=== PATIENT | male | born 1970 | race Hispanic/Latino ===

== ENCOUNTER 2021-06-17 10:31 | Outpatient (CLI) | payer BC ==
[2021-06-17 12:52] LABS: #Eosinphils 0.1 10x3/uL (0.0-0.5); #Monocytes 0.7 10x3/uL (0.0-1.1); #Neutrophils 5.6 10x3/uL (1.5-8.4); %Basophils 0.5 % (0.0-2.0); %Eosinophils 1.3 % (0.0-6.0); %Lymphocytes 19.4 % (18.0-47.0); %Monocytes 8.4 % (0.0-10.0); %Neutrophils 69.5 % (40.0-75.0); Mean Corpuscular HGB CONC 32.4 g/dL (32.0-36.0); Mean Corpuscular Hemoglobin 31.5 pg (27.0-33.0); Mean Corpuscular Volume 97.1 fl (81.2-95.1); Mean Platelet Volume 9.4 fl (7.4-10.4); Platelet Count 184 10x3/uL (150-450); RBC Distribution Width 16.1 % (11.5-14.5); Red Blood Cell (RBC) Count 3.49 10x6/uL (4.32-5.72)
[2021-06-17 13:39] LABS: Anion Gap 16 mmol/L (10-20); BUN (Urea Nitrogen) 32 mg/dL (8.4-25.7); Calc. Creatinine Clearance 0 mL/min (70-130); Calcium 9.3 mg/dL (7.8-10.44); Carbon Dioxide 28 mmol/L (22-29); Chloride 100 mmol/L (98-107); Glucose 112 mg/dL (70-105); Potassium 4.3 mmol/L (3.5-5.1); Sodium 140 mmol/L (136-145)
[2021-06-17 21:15] LABS: SARS-CoV-2 PCR by NAA Not Detected (NotDetected)
== END 2021-06-17 10:32 | disposition home or self-care (01) ==
LOC: LABBT 10:31
PROVIDERS: ATTEND Specialist
DX: Z01.818 Encounter for other preprocedural examination (principal); K42.9 Umbilical hernia without obstruction or gangrene; Z20.822 Contact with and (suspected) exposure to COVID-19
CPT/HCPCS: 80048; 85025; 93005; 93010; U0003; U0005

== ENCOUNTER 2021-06-20 06:41 | Observation (INO) | payer BC ==
[2021-06-20] MEDS ORDERED: Acetaminophen 500 MG TAB ONE (07:03)
[2021-06-20] MEDS ORDERED: ceFAZolin 2 GM/DEX 5% 100 ML BAG ONE (07:03)
[2021-06-20] MEDS ORDERED: Midazolam HCl 2 mg/2 ml Vial ONE (09:07)
[2021-06-20] MEDS ORDERED: Fentanyl 100 MCG/2 ML VIAL ONE ×4 (09:07→12:57)
[2021-06-20] MEDS ORDERED: Bupivacaine 0.25% HCL 30 ML VIAL ONE (09:09)
[2021-06-20] MEDS ORDERED: Lidocaine 1% w/Epinephrine 1:100K 20 ML VIAL ONE (09:09)
[2021-06-20] MEDS ORDERED: SUGAMMADEX SODIUM 200 MG/2 ML VIAL ONE ×2 (09:19→10:11)
[2021-06-20] MEDS ORDERED: Ondansetron PF 4 MG/2 ML Vial ONE (09:28)
[2021-06-20] MEDS ORDERED: PROPOFOL 200 MG/20 ML VIAL ONE (09:28)
[2021-06-20] MEDS ORDERED: Lidocaine 1% PF 5 ML VIAL ONE (09:28)
[2021-06-20] MEDS ORDERED: Vecuronium 10 MG VIAL ONE (09:28)
[2021-06-20] MEDS ORDERED: Rocuronium Bromide 10 MG/ML (10ML VIAL) ONE (09:28)
[2021-06-20] MEDS ORDERED: ePHEDrine 50 MG/ML VIAL ONE (09:28)
[2021-06-20] MEDS ORDERED: Sodium Chloride For Inhalation 0.9% 3 ML NEB ONE (10:30)
[2021-06-20] MEDS ORDERED: Racepinephrine 2.25% 0.5 ML NEB ONE (10:30)
[2021-06-20] MEDS ORDERED: HYDROcodone/Acetaminophen 5/325 mg Tablet ONE ×2 (11:44→12:15)
[2021-06-20] MEDS ORDERED: Ondansetron ODT 4 MG TAB PO PRN (14:49)
[2021-06-20] MEDS ORDERED: Dextrose 5% in Water 1,000 ML IV PRN (14:49)
[2021-06-20] MEDS ORDERED: Dextrose 50% Abboject 50 ML SYRINGE SLOW IVP PRN (14:49)
[2021-06-20] MEDS ORDERED: Ondansetron PF 4 MG/2 ML Vial IVP PRN (14:49)
[2021-06-20] MEDS ORDERED: hydrALAZINE 20 MG/ML VIAL SLOW IVP PRN (14:49)
[2021-06-20] MEDS ORDERED: Acetaminophen 500 MG TAB PO PRN (14:52)
[2021-06-20] MEDS ORDERED: traMADol HCl 50 MG TAB PO PRN ×3 (14:52→15:45)
[2021-06-20] MEDS ORDERED: HYDROcodone/Acetaminophen 7.5/325 mg Tablet PO PRN (14:53)
[2021-06-20] MEDS ORDERED: Terazosin HCl 5 MG CAP PO SCH (15:00)
[2021-06-20] MEDS ORDERED: Acetaminophen 500 MG TAB PO SCH (15:00)
[2021-06-20] MEDS ORDERED: Morphine 4 MG/ML VIAL SLOW IVP PRN (15:22)
[2021-06-20] MEDS ORDERED: hydrALAZINE 25 MG TAB PO SCH (15:30)
[2021-06-20] MEDS: Sevelamer Carbonate 800 MG TAB PO SCH (18:06)
[2021-06-20] MEDS: Morphine 4 MG/ML VIAL SLOW IVP PRN ×2 (18:45→23:14)
[2021-06-20] MEDS: Carvedilol 25 MG TAB PO SCH (19:28)
[2021-06-20] MEDS: hydrALAZINE 25 MG TAB PO SCH (19:29)
[2021-06-20] MEDS: Isosorbide Dinitrate 20 MG TAB PO SCH (19:29)
[2021-06-20 19:52] VITALS: BMI 29.1
[2021-06-20] MEDS ORDERED: NIFEdipine XL 90 MG TAB PO SCH (21:00)
[2021-06-20] MEDS ORDERED: Famotidine 20 MG TAB PO SCH (21:00)
[2021-06-20] MEDS ORDERED: ALPRAZolam 0.25 MG TAB PO SCH (21:00)
[2021-06-21 04:58] LABS: #Eosinphils 0.1 thou/uL (0.0-0.7); #Lymphocytes 1.9 thou/uL (1.20-3.40); #Monocytes 0.7 thou/uL (0.11-0.59); #Neutrophils 5.5 thou/uL (1.40-6.50); %Basophils 0.6 % (0.0-1.0); %Eosinophils 1.3 % (0.0-10.0); %Lymphocytes 23.3 % (21.0-51.0); %Monocytes 8.2 % (0.0-10.0); %Neutrophils 66.6 % (42.0-75.0); Hemoglobin 11.6 g/dL (14.0-18.0); Mean Corpuscular HGB CONC 32.6 g/dL (32.0-36.0); Mean Platelet Volume 6.7 fL (7.4-10.4); Platelet Count 154 thou/uL (130-400); RBC Distribution Width 16.3 % (11.5-14.5); Red Blood Cell (RBC) Count 3.51 mill/uL (4.70-6.10); White Blood Cell (WBC) Count 8.2 thou/uL (4.8-10.8)
[2021-06-21 05:19] LABS: Anion Gap 11 mmol/L (10-20); BUN (Urea Nitrogen) 22 mg/dL (8.4-25.7); Calc. Creatinine Clearance 14 mL/min (70-130); Calcium 9.1 mg/dL (7.8-10.44); Carbon Dioxide 32 mmol/L (22-29); Chloride 100 mmol/L (98-107); Glucose 93 mg/dL (70-105); Potassium 4.5 mmol/L (3.5-5.1); Sodium 138 mmol/L (136-145)
[2021-06-21] MEDS: Sevelamer Carbonate 800 MG TAB PO SCH ×2 (08:00→11:14)
[2021-06-21] MEDS: Carvedilol 25 MG TAB PO SCH (08:00)
[2021-06-21] MEDS: Isosorbide Dinitrate 20 MG TAB PO SCH (08:00)
[2021-06-21] MEDS: hydrALAZINE 25 MG TAB PO SCH (08:43)
[2021-06-21 11:49] VITALS: BP 178/87; TEMP 97.6
== END 2021-06-21 12:18 | disposition home or self-care (01) ==
LOC: SDC 06:41 → SURG A 13:42
PROVIDERS: ADMIT Specialist; ATTEND Specialist
PROC: 0WUF4JZ Supplement Abdominal Wall with Synthetic Substitute, Percutaneous Endoscopic Approach (ICD-10-PCS; principal; 2021-06-20)
DX: K42.9 Umbilical hernia without obstruction or gangrene (principal); I12.0 Hypertensive chronic kidney disease with stage 5 chronic kidney disease or end stage renal disease; N18.6 End stage renal disease; E87.5 Hyperkalemia; G47.00 Insomnia, unspecified; E78.5 Hyperlipidemia, unspecified; Z86.16 Personal history of COVID-19; Z87.891 Personal history of nicotine dependence; Z79.899 Other long term (current) drug therapy; Z88.1 Allergy status to other antibiotic agents; Z95.0 Presence of cardiac pacemaker; Z99.2 Dependence on renal dialysis
CPT/HCPCS: 36415; 80048; 85025; 90935; 96374; 96375; 96376; C1781; G0257; G0378; J0360; J2250; J2270; J2405; J2704; J3010; J3490; S0020

== ENCOUNTER 2021-10-21 13:23 | Outpatient (CLI) | payer BC ==
[2021-10-21 14:52] LABS: Hemoglobin 11.1 g/dL (13.5-17.5); Mean Corpuscular HGB CONC 32.2 g/dL (32.0-36.0); Mean Corpuscular Hemoglobin 31.5 pg (27.0-33.0); Mean Platelet Volume 9.4 fl (7.4-10.4); Platelet Count 174 10x3/uL (150-450); RBC Distribution Width 17.4 % (11.5-14.5); Red Blood Cell (RBC) Count 3.52 10x6/uL (4.32-5.72); White Blood Cell (WBC) Count 6.2 10x3/uL (3.5-10.5)
[2021-10-21 15:20] LABS: PTT 28.7 sec (22.0-33.0); Prothrombin Time 10.9 sec (9.5-12.1)
[2021-10-21 15:28] LABS: Anion Gap 17 mmol/L (10-20); BUN (Urea Nitrogen) 32 mg/dL (8.4-25.7); Calc. Creatinine Clearance 0 mL/min (70-130); Calcium 9.8 mg/dL (7.8-10.44); Carbon Dioxide 28 mmol/L (22-29); Chloride 99 mmol/L (98-107); Glucose 113 mg/dL (70-105); Potassium 4.8 mmol/L (3.5-5.1); Sodium 139 mmol/L (136-145)
[2021-10-21 17:18] LABS: Bilirubin Neg (Negative); Blood, Urine Negative (Negative); Clarity Clear (Clear); Glucose, Urine (Dipstick) 100 mg/dL (Negative); Ketone, Urine Negative (Negative); Leukocyte Negative (Negative); Nitrite Negative (Negative); Protein, Urine (Dipstick) 100 mg/dl (Neg-Trace); Urobilinogen Normal mg/dL (Less than 2)
[2021-10-21 17:44] LABS: Bacteria/HPF None Seen HPF (None Seen); RBC/HPF None Seen HPF (0-3); Squamous Epithelial None Seen HPF (0-3); WBC/HPF None Seen HPF (0-3)
[2021-10-22 00:24] LABS: SARS-CoV-2 PCR by NAA Not Detected (NotDetected)
== END 2021-10-21 13:24 | disposition home or self-care (01) ==
LOC: LABBT 13:23
PROVIDERS: ATTEND Urology
DX: Z01.818 Encounter for other preprocedural examination (principal); I50.32 Chronic diastolic (congestive) heart failure; N18.6 End stage renal disease; R30.0 Dysuria; R39.15 Urgency of urination; I42.0 Dilated cardiomyopathy; N32.0 Bladder-neck obstruction; Z99.2 Dependence on renal dialysis; Z20.822 Contact with and (suspected) exposure to COVID-19
CPT/HCPCS: 80048; 81001; 85027; 85610; 85730; 87086; 93005; 93010; U0003; U0005

== ENCOUNTER 2021-10-24 06:09 | Day surgery (SDC) | payer BC ==
[2021-10-21 12:12] VITALS: BMI 28.7
[2021-10-24] MEDS ORDERED: Phenylephrine 10 MG/ML VIAL ONE (08:21)
[2021-10-24] MEDS ORDERED: Fentanyl 100 MCG/2 ML VIAL ONE (08:21)
[2021-10-24] MEDS ORDERED: B & O ONE (08:21)
[2021-10-24] MEDS ORDERED: Levofloxacin 500 mg/D5W 100 ml Premix Bag ONE (08:24)
[2021-10-24] MEDS ORDERED: Ondansetron PF 4 MG/2 ML Vial ONE (08:30)
[2021-10-24] MEDS ORDERED: PROPOFOL 200 MG/20 ML VIAL ONE (08:30)
[2021-10-24] MEDS ORDERED: Lidocaine 1% PF 5 ML VIAL ONE (08:30)
[2021-10-24] MEDS ORDERED: Dexamethasone 20 MG/5 ML VIAL ONE (08:30)
[2021-10-24] MEDS ORDERED: Succinylcholine 200 MG/10 ml SYRINGE FS ONE (09:00)
== END 2021-10-24 11:15 | disposition home or self-care (01) ==
LOC: SDC 06:09
PROVIDERS: ATTEND Urology
PROC: 0V507ZZ Destruction of Prostate, Via Natural or Artificial Opening (ICD-10-PCS; principal; 2021-10-24)
DX: N40.1 Benign prostatic hyperplasia with lower urinary tract symptoms (principal); N13.8 Other obstructive and reflux uropathy; I50.32 Chronic diastolic (congestive) heart failure; I42.0 Dilated cardiomyopathy; N18.6 End stage renal disease; Z79.899 Other long term (current) drug therapy; Z88.1 Allergy status to other antibiotic agents; Z88.5 Allergy status to narcotic agent; Z87.891 Personal history of nicotine dependence; Z99.2 Dependence on renal dialysis
CPT/HCPCS: 71045; J1100; J1956; J2370; J2405; J2704; J3010

== ENCOUNTER 2021-11-12 12:09 | Outpatient (CLI) | payer BC | END 2021-11-12 12:10 | disposition home or self-care (01) | LOC: MRI 12:09 | PROVIDERS: ATTEND Family Medicine | DX: M54.16 Radiculopathy, lumbar region (principal); N26.1 Atrophy of kidney (terminal); N28.9 Disorder of kidney and ureter, unspecified | CPT/HCPCS: 72148 ==

== ENCOUNTER 2023-12-29 13:15 | Outpatient (CLI) | payer BC ==
[2023-12-29 14:53] LABS: #Basophils 0.04 10x3/uL (0.0-0.2); #Eosinphils 0.18 10x3/uL (0.0-0.5); #Monocytes 0.56 10x3/uL (0.0-1.1); #Neutrophils 3.09 10x3/uL (1.5-8.4); %Basophils 0.7 % (0.0-2.0); %Eosinophils 3.4 % (0.0-6.0); %Lymphocytes 27.2 % (18.0-47.0); %Monocytes 10.4 % (0.0-10.0); %Neutrophils 57.6 % (40.0-75.0); Hemoglobin 10.6 g/dL (13.5-17.5); Mean Corpuscular HGB CONC 33.1 g/dL (32.0-36.0); Mean Corpuscular Hemoglobin 33.7 pg (27.0-33.0); Mean Corpuscular Volume 101.6 fL (81.2-95.1); Mean Platelet Volume 9.3 fL (7.4-10.4); Platelet Count 150 10x3/uL (150-450); RBC Distribution Width 13.6 % (11.5-14.5); Red Blood Cell (RBC) Count 3.15 10x6/uL (4.32-5.72); White Blood Cell (WBC) Count 5.4 10x3/uL (3.5-10.5)
[2023-12-29 15:16] LABS: Anion Gap 19 mmol/L (10-20); BUN (Urea Nitrogen) 51 mg/dL (8.4-25.7); Calc. Creatinine Clearance 0 mL/min (70-130); Calcium 8.9 mg/dL (7.8-10.44); Carbon Dioxide 26 mmol/L (22-29); Chloride 104 mmol/L (98-107); Estimated GFR 4; Glucose 76 mg/dL (70-105); Sodium 142 mmol/L (136-145)
== END 2023-12-29 13:16 | disposition home or self-care (01) ==
LOC: LABBT 13:15
PROVIDERS: ATTEND Orthopaedic Surgery
DX: Z01.818 Encounter for other preprocedural examination (principal); M77.12 Lateral epicondylitis, left elbow
CPT/HCPCS: 80048; 85025; 93005; 93010

== ENCOUNTER 2024-01-06 08:20 | Day surgery (SDC) | payer BC ==
[2023-12-29 14:04] VITALS: BMI 29.3
[2024-01-06 09:11] LABS: Potassium 5.3 mmol/L (3.5-5.1)
[2024-01-06] MEDS ORDERED: EPINEPHrine 1 MG/ML VIAL ONE (10:55)
[2024-01-06] MEDS ORDERED: Bupivacaine PF 0.5% 30 ML VIAL ONE (10:56)
[2024-01-06] MEDS ORDERED: Ondansetron PF 4 MG/2 ML Vial ONE (11:03)
[2024-01-06] MEDS ORDERED: fentaNYL 50 mcg/mL 1 mL Vial ONE ×3 (11:03→13:29)
[2024-01-06] MEDS ORDERED: PROPOFOL 20 ML ONE (11:03)
[2024-01-06] MEDS ORDERED: Lidocaine 1% PF 5 ML VIAL ONE (11:03)
[2024-01-06] MEDS ORDERED: CEFAZOLIN 2 GM VIAL ONE (11:29)
[2024-01-06] MEDS ORDERED: Sodium Chloride 0.9% 100 ML ONE (11:29)
[2024-01-06] MEDS ORDERED: ePHEDrine Sulfate 50 MG/10 ML VIAL ONE (11:54)
[2024-01-06] MEDS ORDERED: Dexamethasone 20 MG/5 ML VIAL ONE (11:55)
== END 2024-01-06 15:00 | disposition home or self-care (01) ==
LOC: SDC 08:20
PROVIDERS: ATTEND Orthopaedic Surgery
PROC: 0LN40ZZ Release Left Upper Arm Tendon, Open Approach (ICD-10-PCS; principal; 2024-01-06)
DX: M77.12 Lateral epicondylitis, left elbow (principal); E78.5 Hyperlipidemia, unspecified; I12.0 Hypertensive chronic kidney disease with stage 5 chronic kidney disease or end stage renal disease; N18.6 End stage renal disease; Z88.1 Allergy status to other antibiotic agents; Z88.5 Allergy status to narcotic agent; Z95.0 Presence of cardiac pacemaker; Z79.899 Other long term (current) drug therapy
CPT/HCPCS: 84132; 93005; 93010; J0171; J0665; J1100; J2405; J2704; J3010; J3490

== ENCOUNTER 2024-07-15 00:21 | Emergency (ER) | payer BC | END 2024-07-15 01:00 | disposition home or self-care (01) | LOC: ERS 00:21 | DX: L29.9 Pruritus, unspecified (principal); N18.6 End stage renal disease; Z99.2 Dependence on renal dialysis | CPT/HCPCS: 99282 ==

== ENCOUNTER 2025-03-21 08:35 | Outpatient (CLI) | payer BC ==
[2025-03-21 09:58] LABS: #Basophils 0.03 10x3/uL (0.0-0.2); #Eosinophils 0.11 10x3/uL (0.0-0.7); #Monocytes 0.59 10x3/uL (0.11-0.59); #Neutrophils 2.92 10x3/uL (1.40-6.50); %Basophils 0.6 % (0.0-1.0); %Eosinophils 2.2 % (0.0-10.0); %Lymphocytes 26.5 % (21.0-51.0); %Monocytes 11.8 % (0.0-10.0); %Neutrophils 58.3 % (42.0-75.0); Hematocrit 34.0 % (42.0-52.0); Hemoglobin 10.7 g/dL (14.0-18.0); Mean Corpuscular Hemoglobin 31.0 pg (27.0-31.0); Mean Corpuscular Volume 98.6 fL (78.0-98.0); Platelet Count 124 10x3/uL (130-400); Red Blood Cell (RBC) Count 3.45 mill/uL (4.70-6.10); White Blood Cell (WBC) Count 5.01 10x3/uL (4.8-10.8)
[2025-03-21 10:21] LABS: ALT (SGPT) Less than 7 U/L (Less than 45); AST (SGOT) 20 U/L (11-34); Albumin 3.8 g/dL (3.1-4.5); Alkaline Phosphatase 75 U/L (40-110); Anion Gap 19 mmol/L (10-20); BUN (Urea Nitrogen) 40 mg/dL (8.4-25.7); Bilirubin, Direct 0.2 mg/dL (0.1-0.3); Bilirubin, Total 0.4 mg/dL (0.3-1.2); Calc. Creatinine Clearance 0 mL/min (70-130); Calcium 9.8 mg/dL (7.8-10.44); Carbon Dioxide 30 mmol/L (22-29); Chloride 100 mmol/L (98-107); Globulin 3.3 g/dL (2.4-3.5); Glucose 88 mg/dL (70-105); Potassium 5.7 mmol/L (3.5-5.1); Sodium 143 mmol/L (136-145)
== END 2025-03-21 08:36 | disposition home or self-care (01) ==
LOC: LABBT 08:35
PROVIDERS: ATTEND Internal Medicine Cardiovascular Disease
DX: Z01.812 Encounter for preprocedural laboratory examination (principal); R07.9 Chest pain, unspecified
CPT/HCPCS: 80053; 80076; 85025

== ENCOUNTER 2025-03-23 05:44 | Day surgery (SDC) | payer BC ==
[2025-03-21 08:46] VITALS: BMI 29.3
[2025-03-23 07:31] LABS: Anion Gap 19 mmol/L (10-20); BUN (Urea Nitrogen) 37 mg/dL (8.4-25.7); Calc. Creatinine Clearance 10 mL/min (70-130); Calcium 9.3 mg/dL (7.8-10.44); Carbon Dioxide 29 mmol/L (22-29); Chloride 101 mmol/L (98-107); Glucose 132 mg/dL (70-105); Potassium 4.7 mmol/L (3.5-5.1); Sodium 144 mmol/L (136-145)
[2025-03-23] MEDS ORDERED: Adenosine 6 mg (2 mL) VIAL ONE (08:04)
[2025-03-23] MEDS ORDERED: PHENYLEPHRINE-NS 100 MCG/ML 10 ML SYRINGE ONE (08:04)
[2025-03-23] MEDS ORDERED: Nitroglycerin 50 MG/250 ML BOT 0 ML ONE (08:04)
[2025-03-23] MEDS ORDERED: Heparin 10,000 UNITS/ 10 ML VIAL ONE (08:04)
[2025-03-23] MEDS ORDERED: EPINEPHrine 1 MG/10 ML Abboject SYRINGE ONE (08:04)
[2025-03-23] MEDS ORDERED: Lidocaine 1% (PF) 30 ML VIAL ONE (08:04)
[2025-03-23] MEDS ORDERED: Iopamidol 370 76% 100 ML VIAL ONE (11:10)
== END 2025-03-23 12:16 | disposition home or self-care (01) ==
LOC: SDC 05:44
PROVIDERS: ATTEND Internal Medicine Cardiovascular Disease
PROC: 4A023N7 Measurement of Cardiac Sampling and Pressure, Left Heart, Percutaneous Approach (ICD-10-PCS; principal; 2025-03-23)
DX: R07.9 Chest pain, unspecified (principal); I13.2 Hypertensive heart and chronic kidney disease with heart failure and with stage 5 chronic kidney disease, or end stage renal disease; I50.9 Heart failure, unspecified; N18.6 End stage renal disease; Z95.810 Presence of automatic (implantable) cardiac defibrillator; Z87.891 Personal history of nicotine dependence; Z98.890 Other specified postprocedural states; Z88.5 Allergy status to narcotic agent; Z88.1 Allergy status to other antibiotic agents; Z79.899 Other long term (current) drug therapy
CPT/HCPCS: 80048; 93458; 99152; 99153; C1769; C1887; J0153; J0165; J0461; J1644; J2250; J3010; Q9967

== ENCOUNTER 2025-07-12 21:40 | Emergency (ER) | payer BC ==
[2025-07-12] MEDS ORDERED: Ketorolac Tromethamine 30 MG (1 mL) VIAL ONE (23:13)
[2025-07-12] MEDS ORDERED: predniSONE 20 MG TAB ONE (23:14)
== END 2025-07-12 23:20 | disposition home or self-care (01) ==
LOC: ERS 21:40
DX: M25.571 Pain in right ankle and joints of right foot (principal); N18.6 End stage renal disease; Z99.2 Dependence on renal dialysis
CPT/HCPCS: 96372; 99283; J1885; J7512